=== PATIENT | female | born 1980 | race Caucasian/White ===

== ENCOUNTER 2020-06-24 10:14 | Outpatient (CLI) | payer OTHER | END 2020-06-24 10:15 | disposition home or self-care (01) | LOC: COV 10:14 | PROVIDERS: ATTEND Family Medicine | DX: R50.9 Fever, unspecified (principal); Z20.828 Contact with and (suspected) exposure to other viral communicable diseases; R05 Cough; R09.81 Nasal congestion; R06.02 Shortness of breath ==

== ENCOUNTER 2020-08-14 05:14 | Outpatient (CLI) | payer BC | END 2020-08-14 05:15 | disposition home or self-care (01) | LOC: LAB 05:14 | DX: O09.811 Supervision of pregnancy resulting from assisted reproductive technology, first trimester (principal); Z3A.00 Weeks of gestation of pregnancy not specified | CPT/HCPCS: 36415; 84443; 84702; 84703 ==

== ENCOUNTER 2020-08-30 07:35 | Outpatient (CLI) | payer BC ==
--- NOTE | 2020-08-30 10:44 | Ultrasound Report ---
PROCEDURE: OB First Trimester w/TV INDICATIONS: 1ST TRIMESTER DATING/VIABILITY OUTSIDE/PRIOR DATING DATA: Last menstrual period (LMP): 07/13/2020. IVF transfer date 08/03/2020 LMP-based estimated date of delivery (JV): 04/19/2021. JV based on IVF transfer: 04/21/2021. First dating scan (date and location): 08/30/2020, current study. Estimated date of delivery (JV) from first dating scan: 04/24/2021. TECHNIQUE: Real-time scanning was performed of the fetus and maternal pelvic organs, with image documentation. Endovaginal scanning was also performed to better visualize the fetus and maternal ovaries. COMPARISON: None available FINDINGS: Embryo: Mean gestational sac diameter is 1.35 cm. A yolk sac and pole are identified. The aver age crown-rump length is 4.1 mm which corresponds to a 6 week 1 day gestation. There is detectable ca rdiac activity at a rate of 121 bpm. Maternal organs: The uterus is anteverted and contains a gestational sac with a moderate decidual re sponse. The cervix is closed by transvaginal imaging. The left ovary has a normal follicular echotext ure. The right ovary was not seen. No suspicious right adnexal mass. IMPRESSION: 1. Single viable intrauterine . 2. Gestational age based on crown-rump length is 6 weeks 1 day with an estimated due date of , however JV based on IVF transfer is 04/21/2021. Reviewed by: Amberly Wilhelm MD on 08/30/2020 10:42 AM PST Approved by: Amberly Wilhelm MD on 08/30/2020 10:42 AM PST Station ID: [id number]
== END 2020-08-30 07:36 | disposition home or self-care (01) ==
LOC: DI 07:35
PROVIDERS: ATTEND Midwife
DX: O09.811 Supervision of pregnancy resulting from assisted reproductive technology, first trimester (principal)
CPT/HCPCS: 36415; 82670; 84144

== ENCOUNTER 2020-08-30 08:24 | Outpatient (CLI) | payer BC ==
[2020-08-31 05:27] LABS: PROGESTERONE 24.5 ng/mL
== END 2020-08-30 08:25 | disposition home or self-care (01) ==
LOC: LAB 08:24
PROVIDERS: ATTEND Obstetrics & Gynecology
DX: O09.811 Supervision of pregnancy resulting from assisted reproductive technology, first trimester (principal)
CPT/HCPCS: 36415; 82670; 84144

== ENCOUNTER 2020-09-14 11:13 | Outpatient (CLI) | payer BC ==
--- NOTE | 2020-09-14 17:29 | Ultrasound Report ---
PROCEDURE: OB First Trimester w/TV INDICATIONS: SUPERVISION OF OUTSIDE/PRIOR DATING DATA: Last menstrual period (LMP): 07/13/2020. LMP-based estimated date of delivery (JV): 04/19/2021. First dating scan (date and location): 08/30/2020. Estimated date of delivery (JV) from first dating scan: 04/24/2021. TECHNIQUE: Real-time scanning was performed of the fetus and maternal pelvic organs, with image documentation. Endovaginal scanning was also performed to better visualize the fetus and maternal ovaries. COMPARISON: 08/30/2020 FINDINGS: There is a single living intrauterine gestation with crown-rump length 2.0 cm, which corre lates with a gestational age estimate of 8 weeks 4 days, +/- 5 days. Embryo: Appropriate interval growth, estimated current gestational age from first available accurate dating is 8 weeks 2 days and the current gestational age from today's study is 8 weeks 4 days, +/- 5 days. Note is made of a small subchorionic hemorrhage measuring 3.4 x 1.0 x 5.4 cm. Measurement variability in dating: +/- 4 weeks by LMP, +/- 7 days by mean sac diameter (use before 6 weeks gestation if crown-rump length not able to be measured), +/- 5 days by crown-rump length (6-12 weeks gestation). Maternal organs: Ovaries normal considering gestational status. Limited images through the kidneys demonstrate no hydronephrosis. IMPRESSION: Appropriate interval growth, viability documented. Small adjacent subchorionic hemorrhage as di scussed above. Follow-up anatomic survey at 20 weeks gestation is recommended. Delivery date is projected to be centered on 04/24/2021. Reviewed by: Gordon Davis MD on 09/14/2020 5:28 PM PST Approved by: Gordon Davis MD on 09/14/2020 5:28 PM PST Station ID: [id number]
== END 2020-09-14 11:14 | disposition home or self-care (01) ==
LOC: DI 11:13
PROVIDERS: ATTEND Midwife
DX: O20.8 Other hemorrhage in early pregnancy (principal); Z3A.08 8 weeks gestation of pregnancy; O09.811 Supervision of pregnancy resulting from assisted reproductive technology, first trimester
CPT/HCPCS: 36415; 82670; 84144

== ENCOUNTER 2020-09-14 12:03 | Outpatient (CLI) | payer BC ==
[2020-09-15 04:57] LABS: PROGESTERONE 47.2 ng/mL
== END 2020-09-14 12:04 | disposition home or self-care (01) ==
LOC: LAB 12:03
PROVIDERS: ATTEND Obstetrics & Gynecology
DX: O09.811 Supervision of pregnancy resulting from assisted reproductive technology, first trimester (principal)
CPT/HCPCS: 36415; 82670; 84144

== ENCOUNTER 2021-04-18 15:10 | Outpatient (CLI) | payer BC ==
--- NOTE | 2021-04-18 16:40 | Ultrasound Report ---
PROCEDURE: OB Biophysical Profile INDICATIONS: IVF TERM OUTSIDE/PRIOR DATING DATA: Last menstrual period (LMP): 07/13/2020. LMP-based estimated date of delivery (JV): 04/19/2021. First dating scan (date and location): [facility] 08/30/2020. Estimated date of delivery (JV) from first dating scan: 04/24/2021. TECHNIQUE: Real-time scanning was performed of the fetus, with image documentation and biometric brenden surements. Biophysical profile was also obtained. Endovaginal scanning: None COMPARISON: 09/14/2020 FINDINGS: General: A single living intrauterine gestation is present. Presentation: Cephalic Placenta: Placental position is anterior, without previa. Amniotic fluid index: 18.4 cm, normal for gestational age. heart rate: 137 beats per minute. Maternal cervical canal: Not identified Estimated gestational age from initial scan: 39 week 4 day Biophysical profile: Tone: 2 points. Movement: 2 points. Respiration: 2 points. Largest pocket of fluid: 2 points. (6.9 cm) IMPRESSION: Single live intrauterine consistent with 29 week 4 day gestation by dates and 39 week 1 day gestation by first trimester ultrasound DAVID 18.4 cm. Biophysical profile score 8 out of 8 Reviewed by: Sanju Villar MD on 04/18/2021 3:39 PM [facility] Approved by: Sanju Villar MD on 04/18/2021 3:39 PM [facility] Station ID: [id number]
== END 2021-04-18 15:11 | disposition home or self-care (01) ==
LOC: DI 15:10
PROVIDERS: ATTEND Midwife
DX: Z34.03 Encounter for supervision of normal first pregnancy, third trimester (principal)

== ENCOUNTER 2024-03-28 08:00 | Outpatient (CLI) | payer BC | END 2024-03-28 23:59 | disposition home or self-care (01) | LOC: LAB.S 08:00 | PROVIDERS: ATTEND Emergency Medicine | DX: N30.90 Cystitis, unspecified without hematuria (principal) | CPT/HCPCS: 87077; 87086 ==